=== PATIENT | female | born 1965 | race Caucasian/White ===

== ENCOUNTER 2017-01-16 12:07 | Day surgery (SDC) | payer OTHER ==
[2017-01-15 17:20] VITALS: BMI 39.3
[2017-01-16] MEDS ORDERED: PROPOFOL 20 ML ONE ×3 (12:35→12:51)
[2017-01-16 14:14] VITALS: TEMP 97.8
[2017-01-16 14:17] VITALS: BP 131/84; PULSE 76
--- NOTE | 2017-01-21 17:48 | PATH ---
Surgical Pathology Report Patient Name: GENNARO HUERTA [facility]. Rec. #: [id number] /Age/Gender: 1965 (Age: 51) / F Account: [id number] Location: [facility]-ENDOSCOPY Taken: 01/16/2017 Received: 01/16/2017 Reported: 01/21/2017 Physicians: Mana Ray M.D. Specimen(s) Received A: BX SECOND PORTION DUODENUM B: BX ANTRUM C: BX GE JUNCTION Clinical History Nausea/vomiting, dysphagia Gastritis, gastric erosion, GERD, rule out celiac disease Final Diagnosis A. SECOND PORTION DUODENUM, BIOPSY: DUODENAL MUCOSA WITH NO PATHOLOGIC FINDINGS. Note: Features suggestive of celiac disease are not identified in this biopsy. B. ANTRUM, BIOPSY: MILD CHRONIC GASTRITIS. IMMUNOSTAIN IS NEGATIVE FOR H. PYLORI ORGANISMS. C. GE JUNCTION, BIOPSY: GASTRIC CARDIA-TYPE MUCOSA WITH MILD CHRONIC INFLAMMATION. NO INTESTINAL METAPLASIA IS IDENTIFIED. Electronically Signed Alexus Nuñez M.D. Gross Description A. Received in formalin, labeled "second portion duodenum" are 2 clarke, irregular portions of soft tissue measuring 0.2-0.3 cm. in greatest dimension. The specimens are submitted in toto in one cassette. B. Received in formalin, labeled "antrum" are 2 clarke, irregular portions of soft tissue measuring 0.3 cm. in greatest dimension. The specimens are submitted in toto in one cassette. C. Received in formalin, labeled "GE junction" are 2 clarke, irregular portions of soft tissue measuring 0.2 cm. in greatest dimension. The specimens are submitted in toto in one cassette. [facility]/01/16/2017 [facility]/01/16/2017
== END 2017-01-16 14:10 | disposition home or self-care (01) ==
LOC: FASU-ENDO 12:07
PROVIDERS: ATTEND Internal Medicine Gastroenterology
PROC: 0DB58ZX Excision of Esophagus, Via Natural or Artificial Opening Endoscopic, Diagnostic (ICD-10-PCS; 2017-01-16)
PROC: 0DB98ZX Excision of Duodenum, Via Natural or Artificial Opening Endoscopic, Diagnostic (ICD-10-PCS; principal; 2017-01-16 13:00)
PROC: 0DB68ZX Excision of Stomach, Via Natural or Artificial Opening Endoscopic, Diagnostic (ICD-10-PCS; 2017-01-16 13:00)
DX: K29.50 Unspecified chronic gastritis without bleeding (principal); K29.80 Duodenitis without bleeding; K20.9 Esophagitis, unspecified; R10.9 Unspecified abdominal pain
CPT/HCPCS: 36415; 82705; 82710; 84703; 87045; 87046; 87177; 87205; 87209; 87324; 87328; 87329; 87449; 88305-TC; 88342-TC